=== PATIENT | male | born 1940 | race Caucasian/White ===

== ENCOUNTER 2025-04-06 12:00 | Emergency (ER) | payer MEDICARE, SELFPAY ==
--- NOTE | ~2025-04-06 | XR_ITS ---
Examination: XR chest 2V Clinical History: cough, sob x10 days. hx COPD Comparison: None Technique: PA and Lateral Findings: Cardiomediastinal silhouette normal size and configuration. Lungs clear. Except trace bibasilar atelectasis. No acute bony abnormality. IMPRESSION: 1. No acute cardiopulmonary findings. Reviewed, dictated and finalized at location R.
--- OUTSIDE RECORDS SUMMARY | 2025-04-06 12:08 | XMS_ITS | Clinical Summary ---
Author Organization [facility] Address [address] [place] [address] Care Team Providers Care Supervisor [employer] Name Role Phone Unavailable Primary Care Provider Unavailabl e Source Comments [facility],non-owned Affiliates and Associated Physician Practices is amultiple site organization consisting of ambulatory clinics and hospital sitesin [place], [place], [place] and [place]. This disclosure is being madepursuant to the Care Everywhere program and may not contain all information available regarding this patient. Last updated 18.[facility] Allergies No known active allergies Medications * Be aware that medications may not be up to date on this document. Alwaysverify current medications with the patient. PARoxetine (PAXIL) 10 MG tabletIndication s:Osteoarthrosis , unspecified whether generalized or localized, lower leg Take 10 mg by mouth once daily. Active hydrochlorothiaz cyndee (HYDRODIURIL) 25 MG tabletIndication s:Osteoarthrosis , unspecified whether generalized or localized, lower leg Take 25 mg by mouth once daily. Active atorvastatin (LIPITOR) 40 MG tabletIndication s:Osteoarthrosis , unspecified whether generalized or localized, lower leg Take 40 mg by mouth at bedtime. Active montelukast (SINGULAIR) 10 MG tabletIndication s:Osteoarthrosis , unspecified whether generalized or localized, lower leg Take 10 mg by mouth at bedtime. Active lisinopril (PRINIVIL; ZESTRIL) 20 MG tabletIndication s:Osteoarthrosis , unspecified whether generalized or localized, lower leg Take 20 mg by mouth 2 times daily. Active Albuterol Sulfate (PROAIR HFA IN)Indications:O steoarthrosis, unspecified whether generalized or localized, lower leg Inhale by mouth. Active nebivolol (BYSTOLIC) 10 MG tabletIndication s:Osteoarthrosis , unspecified whether generalized or localized, lower leg Take 10 mg by mouth once daily. Active NIFEdipine CR 24hr (ADALAT CC) 30 MG tabletIndication s:Osteoarthrosis , unspecified whether generalized or localized, lower leg Take 30 mg by mouth once daily. Take on an empty stomach. Active ekpyh-2-iabs ethyl esters (LOVAZA) 1 G capsuleIndicatio ns:Osteoarthrosi s, unspecified whether generalized or localized, lower leg Take 1 g by mouth 4 times daily. Active omeprazole (PRILOSEC) 40 MG capsuleIndicatio ns:Osteoarthrosi s, unspecified whether generalized or localized, lower leg Take 40 mg by mouth daily before breakfast. Active vitamin C (ASCORBIC ACID) 500 MG tabletIndication s:Osteoarthrosis , unspecified whether generalized or localized, lower leg Take 500 mg by mouth once daily. Active aspirin (BABY ASPIRIN) 81 MG chew tabletIndication s:Osteoarthrosis , unspecified whether generalized or localized, lower leg Take 81 mg by mouth once daily. Active multivitamin (OPURITY) CHEW tabletIndication s:Osteoarthrosis , unspecified whether generalized or localized, lower leg Take 1 Tab by mouth once daily. 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 Gender Identity Not on file Sexual Orientation Not on file Plan of Treatment Health Maintenance Due Date Last Done Comments DTAP/TDAP/TD VACCINES (1 - Tdap) 1961 PNEUMOCOCCAL VACCINE 50+ (1 of 1 - PCV) 1992 ZOSTER VACCINE (1 of 2) 1992 Respiratory Syncytial Virus (RSV) Vaccine Pt: or over 60 yrs (1 - 1-dose 75+ series) 2017 DEPRESSION SCREENING 07/21/2024 COVID-19 VACCINE (2023-2 5 season) 2025 INFLUENZA VACCINE (#1) 2025 HEPATITIS B VACCINE Aged Out No longe r eligible based on patient's age to complete this topic HIB VACCINE Aged Out No longer eligi ble based on patient's age to complete this topic HPV VACCINE Aged Out No longer eligi ble based on patient's age to complete this topic MENINGOCOCCAL (Group B) VACC INE SHARED DECISION-MAKING Aged Out No longer eligibl e based on patient's age to complete this topic MENINGOCOCCAL GROUPS A/C/Y/W VACCINE Aged Out No longer eligible b ased on patient's age to complete this topic Insurance MEDICARE [facility] Address: [facility] [id number] [place] [address] [employer] MANAGED MEDICARE [place] [id number]
--- OUTSIDE RECORDS SUMMARY | 2025-04-06 12:08 | XMS_ITS | Clinical Summary ---
Author Organization [facility] Address [address] [address] Phone Care Team Providers Care Wire Saw Operator Name Role Phone Amilcar Christianson MD Primary Care Provider [phone] Allergies Active Allergy Reactions Criticality Noted Date Comments Shellfish Allergy Hives 03/18/2018 Medications PARoxetine (PAXIL) 20 MG Tablet Take 20 mg by mouth daily. Active amLODIPine (NORVASC) 5 MG Tablet Take 5 mg by mouth daily. Active montelukast (SINGULAIR) 10 MG Tablet Take 10 mg by mouth daily. Active tamsulosin (FLOMAX) 0.4 MG Capsule Take 0.4 mg by mouth daily. Active potassium chloride CR (KLORCON) 10 MEQ Tablet Controlled Release Take 10 mEq by mouth 2 times daily. Active losartan-hydroc hlorothiazide (HYZAAR) 100-12.5 MG Tablet Take 1 Tab by mouth daily. Active atorvastatin (LIPITOR) 40 MG Tablet Take 40 mg by mouth daily. Active spironolactone (ALDACTONE) 25 MG Tablet Take 25 mg by mouth daily. Active furosemide (LASIX) 40 MG Tablet Take 40 mg by mouth daily. Active [place]-3 Fatty Acids (OMEGA 3 PO) Take 1 Tab by mouth 4 times daily. Active magnesium oxide (MAG-OX) 400 MG Tablet Take 400 mg by mouth daily. Active Vitamin B-1 (THIAMINE) 100 MG Tablet Take 1 Tab by mouth daily. Active baclofen (LIORESAL) 10 MG Tablet Take 10 mg by mouth daily. Active folic acid (FOLVITE) 1 MG Tablet Take 1 mg by mouth daily. Active Aspirin 81 MG Tablet Take 81 mg by mouth daily. Active ascorbic acid (ASCORBIC ACID) 500 MG Tablet Take 500 mg by mouth daily. Active Multiple Vitamins-Minera ls (MULTIVITAMIN PO) Take 1 Tab by mouth daily. Pt instructed to hold multivitamin for 5 days prior to colonoscopy scheduled 03/18/18 Active raNITIdine (ZANTAC) 300 MG Tablet Take 300 mg by mouth daily. Active Family History Medical History Relation Name Comments Aneurysm Brother brain Heart Attack Father Asthma Mother Cancer Paternal Uncle Had a brain t umor Cancer? Relation Name Status Comments Brother Father Mother Paternal Uncle Social History Tobacco Use Types Packs/Day Years Used Date Smoking Tobacco: Former Cigarettes 2 15 0 07/21/1962 - 07/21/1977 Smokeless Tobacco: Never Alcohol Use Standard Drinks/Week Comments Yes 0 (1 standard drink = 0.6 oz pur e alcohol) 8-10 cans of beer/day Sex and Gender Information Value Date Recorded Sex Assigned at Not on file Legal Sex Male 9:37 PM CDT Gender Identity Not on file Sexual Orientation Not on file Last Filed Vital Signs Vital Sign Reading Time Taken Comments Blood Pressure 176/94 03/18/2018 8:09 AM CDT Pulse 66 03/18/2018 8:09 AM CDT Temperature 36 C (96.8 F) 03/18/2018 8:09 AM CDT Respiratory Rate 15 03/18/2018 8:09 AM CDT Oxygen Saturation 99% 03/18/2018 8:09 AM CDT Inhaled Oxygen Concentration - - Weight 104.3 kg (230 lb) 02/26/2018 9:00 AM CDT Height 175.3 cm (5' 9) 02/26/2018 9:00 AM CDT Body Mass Index 33.97 02/26/2018 9:00 AM CDT Plan of Treatment Health Maintenance Due Date Last Done Comments Hepatitis C Virus (HCV) Screening 1942 Zoster Immunization (2 of 3) 03/03/2011 01/06/2011 Respiratory Syncytial Virus (RSV) Immunization (Adult) (1 - 1-dose 75+ series) 2017 Influenza Immunization (#1) 2025 10/0 01/2022, 05/30/2021, 06/07/2020, Additional history exists SARS-COV-2 Immunization (2024-26 season) 2025 04/26/2022, 02/13/2022, 05/30/2021, Additional history exists DTaP/Tdap/Td Immunization Discontinued 08/19/2018, TdaP Immunization Completed 08/19/2018 Pneumococcal Immunization (50+ years) Completed 03/12/2021, 12/19/2014, 11/05/2010 Pneumococcal Immunization Combined Discontinued 03/12/2021, 12/19/2014, 11/05/2010 Hepatitis B Immunization Aged Out No longer eligible based on patient's age to complete this topic Human Papillomavirus (HPV) Immunization Aged Out No longer eligible based on patient's age to complete this topic Meningococcal Immunization (ACWY) Aged Out No longer eligible based on patient's age to complete this topic Rotavirus Immunization Aged Out No lo nger eligible based on patient's age to complete this topic Care Teams Wire Saw Operator Relationship Specialty Start Date End Date Amilcar Christianson MD [address] [place] [address] [place] [id number] PCP - General Internal Medicine 02/19/18
--- OUTSIDE RECORDS SUMMARY | 2025-04-06 12:08 | XMS_ITS | Encounter Summary ---
Author Organization [facility] Address [facility] [facility] [place] [address] Care Team Providers Care Certified Alcohol And Drug Counselor Name Role Phone Unavailable Primary Care Provider Unavailabl e Encounter Details Date Type Department Care Team (Late st Contact Info) Description 01/04/2020 Lab Requisition [facility] Derm[facility] Lab [address] [place] [address] [place] [address] [place] [address] Social History Tobacco Use Types Packs/Day Years Used Date Smoking Tobacco: Unknown Alcohol Use Standard Drinks/Week Comments Not Asked 0 (1 standard drink = 0.6 oz pur e alcohol) Sex and Gender Information Value Date Recorded Sex Assigned at Not on file 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 Gender Identity Not on file Sexual Orientation Not on file documented as of this encounter Plan of Treatment Not on file documented as of this encounter Procedures Procedure Name Priority Date/Time Associated Diagnosis Comments DERMATOPATHOLOGY Routine 01/03/2020 12:0 0 AM CDT documented in this encounter Results * DERMATOPATHOLOGY (01/03/2020 12:00 AM CDT) Case Report Dermatopathology Report Case: [id number] Authorizing Provider: Marisol Saravia MD Collected: 01/03/2020 12:00 AM Ordering Location: [facility] DermPath Lab Received: 01/04/2020 01:10 PM Pathologist: Henna Machuca MD Specimen: Skin, right inferior mormon 0 1:10 PM CDT DERMATOPATHOLOGY LABORATORY Final Diagnosis Specimen A. SKIN, right inferior mormon: BASAL CELL CARCINOMA, NODULAR TYPE (C44.319) 0 1:10 PM CDT DERMATOPATHOLOGY LABORATORY at 1310 CDT Clinical History Basal cell carcinoma. 0 1:10 PM CDT DERMATOPATHOLOGY LABORATORY Gross Description Specimen A: Received is one formalin filled container labeled with the patient's name and designated right inferior mormon. The specimen consists of a shave biopsy measuring 7x5x2 mm. Jar 0. 0 1:10 PM CDT DERMATOPATHOLOGY LABORATORY Microscopic Description Specimen A. SKIN, right inferior mormon: Within the dermis there are aggregates of basaloid cells with a high nuclear to cytoplasmic ratio and peripheral palisading. 0 1:10 PM CDT DERMATOPATHOLOGY LABORATORY Disclaimer An external and internal positive and negative controls are appropriate for the histochemical, immunohistochemical and immunofluorescence stain(s) in this case (if any), except where stated explicitly. The performance characteristics of the stain(s) cited in this report were developed and its performance characteristic determined by the Dermatopathology Laboratory at [facility], directed by Dr. Deonte Vincent. These tests need not be, and therefore are not, approved by the [place] Food and Drug Administration. The tests are used for clinical purposes. Billing Codes Specimen Charges Stain Charges 77025 1 0 1:10 PM CDT DERMATOPATHOLOGY LABORATORY Embedded Images 0 1:10 PM CDT DERMATOPATHOLOGY LABORATORY Pathology/Cytolog y TISSUE SPECIMEN FROM SKIN / Unknown 01/03/2020 01/04/2020 1:10 PM CDT us Marisol Saravia MD LAB - PATHOLOGY/CYTOLOGY ORDERABLES Final Result DERMATOPATHOLOGY LABORATORY [facility] - Department of Dermatology [facility] [employer]/[address] [address], [facility] [place] [phone] documented in this encounter Visit Diagnoses Not on filedocumented in this encounter
[2025-04-06 12:12] VITALS: BP 138/72; PULSE 89; RESP 16; TEMP 36.4; O2SAT 96
--- NOTE | 2025-04-06 12:23 | ED_ITS ---
HPI - URI/Sore Throat General Chief Complaint: Upper Respiratory Infection Stated Complaint: cold symptoms Time Seen by Provider: 04/06/25 12:13 Source: patient and RN notes reviewed Mode of arrival: ambulatory Limitations: no limitations History of Present Illness HPI Narrative: Patient presents today with a productive cough times 10 days with intermittent shortness of breath, nasal congestion, wheezing. History of COPD. He had some leftover guaifenesin/codeine cough medicine at home that has been helpful, but has run out. Uses CPAP at night. Patient is a former smoker. Denies recent fever. Related Data Home Medications ?Medication ?Instructions ?Recorded ?Confirmed ?Last Taken ?Type Mulitvitamin 04/06/25 Unknown History amlodipine 5 mg tablet mg 04/06/25 Unknown History ascorbic acid (vitamin C) 500 mg 500 mg PO DAILY 04/06 Unknown History chewable tablet (Acerola C) aspirin 81 mg tablet,delayed 81 mg PO DAILY 04/06/25 Unknown History release (Adult Aspirin Regimen) atorvastatin 40 mg tablet mg 04/06/25 Unknown History baclofen 10 mg tablet mg 04/06/25 Unknown History ciclopirox 0.77 % topical gel topical 04/06/25 Unknow n History folic acid 1 mg tablet 04/06/25 Unknown History furosemide 40 mg tablet mg 04/06/25 Unknown History losartan 100 tablet 04/06/25 Unknown His tory mg-hydrochlorothiazide 12.5 mg tablet mag [id number] rt xt 04/06/25 Unknown History montelukast 10 mg tablet mg 04/06/25 Unknown History omega-3 acid ethyl esters 1 gram PO 04/06/25 Unknown History capsule omeprazole 40 mg capsule,delayed mg 04/06/25 Unknown History release paroxetine HCl 30 mg tablet mg PO 04/06/25 Unknown Hi story potassium chloride 10 mEq meq PO 04/06/25 Unknown His tory tablet,extended release spironolactone 25 mg tablet mg 04/06/25 Unknown Histo ry tamsulosin 0.4 mg capsule mg PO 04/06/25 Unknown Hist ory thiamine HCl (vitamin B1) 100 mg 100 mg PO DAILY 04/06 Unknown History tablet (Vitamin B-1) Allergies Allergy/AdvReac Type Severity Reaction Status Date / Time shellfish derived Allergy Severe Hives Verified 04/06/25 12:13 [facility] Past Medical History Medical History (Updated 04/06/25 @ 13:05 by Yue Hauser, [facility], ) High cholesterol Hypertension Sleep apnea COPD (chronic obstructive pulmonary disease) Social History Social History (Updated 04/06/25 @ 12:27 by Yue Hauser, [facility], ) Smoking status: Former smoker Tobacco type: cigarettes Smoking end date: 04/06/77 Comments At time of signature, I have reviewed and agree with nursing past medical, surgical, social and family history unless otherwise noted. Please see nursing chart for further information. There is no relevant family history pertinent to the presenting complaint Exam Narrative: GENERAL: Well-appearing, well-nourished, and in no acute distress. HEAD: Normocephalic, atraumatic. EYES: EOMI. No redness or drainage. Conjunctivae normal. ENT: Mucous membranes pink and moist. Nares congested with rhinorrhea. TMs normal bilaterally. Throat normal. Uvula midline. NECK: Normal AROM. Supple. No lymphadenopathy. CHEST: No respiratory distress. Slight crackling in the right lower lobe, otherwise clear HEART: Regular rate and rhythm. No murmur appreciated. EXTREMITIES: Normal range of motion. No edema. SKIN: Warm, dry, no rash. Capillary refill normal. Normal skin turgor. NEURO: No focal deficits. Alert and oriented x3. Gait steady. PSYCH: Normal affect. No signs of depression or anxiety. Course Course Level of Care: Express Care Visit Vital Signs Vital signs: Vital Signs Temperature 97.6 F 04/06/25 12:12 Pulse Rate 89 04/06/25 12:12 Respiratory Rate 16 04/06/25 12:12 Blood Pressure 138/72 04/06/25 12:12 Pulse Oximetry 96 04/06/25 12:12 Oxygen Delivery Room Air 04/06/25 12:12 Temperature 97.6 F 04/06/25 12:12 Pulse Rate 89 04/06/25 12:12 Respiratory Rate 16 04/06/25 12:12 Blood Pressure 138/72 04/06/25 12:12 Pulse Oximetry 96 04/06/25 12:12 Oxygen Delivery Room Air 04/06/25 12:12 Reviewed MDM - URI/Sore Throat MDM Narrative Medical decision making narrative: 84-year-old male patient with a history of COPD, DON, hypertension, presents today with a 10 day history of productive cough, wheezing, intermittent shortness of breath, nasal congestion. Upon exam, patient has some mild nasal congestion and nasal drainage with right lower lobe crackling. Chest x-ray is negative. Patient will be treated with Augmentin for presumed sinusitis as well as prednisone and albuterol for COPD exacerbation. Patient agrees with plan. Vital signs stable. Anticipatory guidance given. Differential Diagnosis Differential diagnosis: Likely upper respiratory infection, sinusitis, viral infection and other (Pneumonia, COPD exacerbation) Imaging Data Radiologist's impression: ITS Impressions Chest X-Ray 04/06/25 12:54 IMPRESSION: 1. No acute cardiopulmonary findings. Critical Care Time Critical Care Time Critical Care Time: No Discharge Plan Discharge Clinical Impression: COPD exacerbation Sinusitis Qualifiers: Sinusitis location: unspecified location Chronicity: acute Recurrence: non- recurrent Qualified Code(s): J01.90 - Acute sinusitis, unspecified Patient Disposition: Home Condition: Stable Instructions: Antibiotic Form, Sinusitis (ED) Additional Instructions: Your chest x-ray is negative today. Please take all medications as prescribed. Follow-up with your PCP next week if symptoms are not improving. Go to the ER immediately if symptoms worsen to include development of new fever greater than 100.3, worsening shortness of breath or wheezing, chest pain. Your blood pressure was elevated above 120/80 today at Urgent Care. This puts you above the threshold for follow up. Please schedule a followup visit with your personal physician as soon as possible, for further evaluation and treatment. Even blood pressure exceeding 120/80 may indicate pre-hypertension. Patient Language: Ukrainian Prescriptions: New prednisone 20 mg tablet 40 mg PO DAILY 5 Days Qty: 10 0RF albuterol sulfate 90 mcg/actuation HFA aerosol inhaler 2 inh inhalation Q4-6H PRN (Reason: shortness of breath or wheezing) Qty: 8.5 0RF amoxicillin-pot clavulanate 875-125 mg tablet 1 tablet PO Q12H 7 Days Qty: 14 0RF No Action furosemide 40 mg tablet atorvastatin 40 mg tablet potassium chloride 10 mEq tablet extended release PO amlodipine 5 mg tablet omeprazole 40 mg capsule,delayed release(DR/EC) spironolactone 25 mg tablet tamsulosin 0.4 mg capsule PO baclofen 10 mg tablet paroxetine HCl 30 mg tablet PO folic acid 1 mg tablet montelukast 10 mg tablet ciclopirox 0.77 % gel TOPICAL omega-3 acid ethyl esters 1 gram capsule PO losartan-hydrochlorothiazide 100-12.5 mg tablet mag [id number] rt xt aspirin [Adult Aspirin Regimen] 81 mg tablet,delayed release (DR/EC) 81 mg PO DAILY ascorbic acid (vitamin C) [Acerola C] 500 mg tablet,chewable 500 mg PO DAILY Mulitvitamin thiamine HCl (vitamin B1) [Vitamin B-1] 100 mg tablet 100 mg PO DAILY Follow-up/Referrals: Eboni,MD Margi [Primary Care Provider, Unknown] Time of Disposition: 13:05
== END 2025-04-06 13:10 | disposition home or self-care (01) ==
PROVIDERS: Emergency Provider Nurse Practitioner; PCP Family Medicine
DX: J44.1 Chronic obstructive pulmonary disease with (acute) exacerbation (principal); J01.90 Acute sinusitis, unspecified; I10 Essential (primary) hypertension; E78.00 Pure hypercholesterolemia, unspecified; G47.30 Sleep apnea, unspecified; Z87.891 Personal history of nicotine dependence; Z79.82 Long term (current) use of aspirin
CPT/HCPCS: 71046; 99203; G0463